=== PATIENT | male | born 1980 | race Caucasian/White ===

== ENCOUNTER 2025-02-27 12:08 | Emergency (ER) | payer BC ==
[~2025-02-27] VITALS: Ht 182.9 cm; Wt 77.0 kg
[2025-02-27 12:14] VITALS: O2SAT 98
[2025-02-27 14:51] VITALS: BP 159/96; PULSE 69; RESP 18; TEMP 36.7; O2SAT 99
== END 2025-02-27 15:24 | disposition left against medical advice (07) ==
LOC: ER 12:08
DX: I74.9 Embolism and thrombosis of unspecified artery (principal); Z53.21 Procedure and treatment not carried out due to patient leaving prior to being seen by health care provider
CPT/HCPCS: 99281